=== PATIENT | male | born 1995 | race Two or more races ===

== ENCOUNTER 2024-02-03 04:55 | Emergency (ER) | payer BC, SELFPAY ==
[2024-02-03 04:55] VITALS: BMI 39.3
[2024-02-03 04:59] VITALS: BP 164/100; PULSE 86; RESP 18; TEMP 36.8; O2SAT 97
--- NOTE | 2024-02-03 05:06 | XR_ITS ---
Examination: CT abdomen and pelvis without contrast. Coronal 3-D reconstructions. Sagittal 2-D reconstructions. Date and time of exam:February 03, 2024 0520 hrs. Comparison August 12, 2016 Indications: Onset right flank pain beginning 3 days ago CTDI: vol (mGy): 13.51 DLP: (mGycm): 933 Technique: Axial images of the abdomen have been obtained, 3 mm slice thickness Intravenous contrast material has not been administered. Low dose protocols were performed. One or more of the following dose reduction techniques were used; automated exposure control, adjustment of the mA and/or KV according to patient size, use of iterative reconstruction technique. Findings: Diffuse fatty infiltration throughout the liver, no liver or splenic lesion Contracted gallbladder No pancreatic or adrenal mass 1 mm mid to lower right renal calculus Multiple left renal calculi, the largest lower pole left kidney 11 mm Mild right hydronephrosis secondary to 3 mm proximal right ureteral calculus image 151 Normal appendix Aorta normal size Contracted urinary bladder Impression: Mild right hydronephrosis secondary to 3 mm proximal right ureteral calculus
--- NOTE | 2024-02-03 05:06 | PD.EDRME ---
Rapid Medical Screening Exam RME Arrival date/time: 02/03/24 04:55 28-year-old male past medical history of kidney stones presents emergency department complaining abdominal pain and right flank pain that started 3 days. Chief Complaint: Abdominal Pain Vital signs: Vital Signs Temperature 98.3 F 02/03/24 04:59 Pulse Rate 86 02/03/24 04:59 Respiratory Rate 18 02/03/24 04:59 Blood Pressure 164/100 H 02/03/24 04:59 Pulse Oximetry (%) 97 02/03/24 04:59 Oxygen Delivery Method Room Air 02/03/24 04:59 Vital signs reviewed by provider: Yes
[2024-02-03] MEDS: KETOROLAC INJ 60 MG/2 ML VIAL 30 MG IM (05:14)
[2024-02-03 05:22] LABS: Collection Type, Urine Clean Catch; Squamous Epithelial Cell,Urine 0 /hpf (0-5)
[2024-02-03 05:25] LABS: Bilirubin,Urine Negative (Negative); Blood,Urine 2+ (Negative); Clarity,Urine Clear (Clear/Hazy); Color,Urine Lt-Yellow (Lt Yel-Yel); Culture Indicated,Urine Not Indicated; Glucose, Urine Negative (Negative); Ketones,Urine Negative (Negative); Leukocyte Esterase,Urine Negative (Negative); Nitrite,Urine Negative (Negative); PH,Urine 6.5 (5.0-7.0); Protein,Urine Negative (Neg - Trace); RBC,Urine 81 /hpf (0-3); Specific Gravity,Urine 1.014 (1.001-1.035); Urobilinogen,Urine Negative mg/dL (0.0-1.0); WBC,Urine 2 /hpf (0-5)
[2024-02-03 05:41] LABS: Amphetamine/Methamp Scrn,U Negative (Negative); Barbiturate Screen,Urine Negative (Negative); Benzodiazepines Screen,Urine Negative (Negative); Benzoylecgonine Screen, Ur Negative (Negative); Fentanyl Screen,Urine Negative (Negative); Opiate Screen,Urine Negative (Negative)
[2024-02-03 05:42] LABS: THC Screen,Urine Positive (Negative)
--- NOTE | 2024-02-03 05:51 | PRELIM_ITS ---
CT scan of the abdomen and pelvis without intravenous contrast (axial sections with sagittal and carolee nal reformats) February 03, 2024 at 0520 hours Clinical History: Right flank pain. Comparison: No thania or study is available for comparison. Findings:The lung bases are clear.The gallbladder, pancreas, sp lee and adrenals are unremarkable on this noncontrast study.Hepatomegaly associated with liver stea tosis is suspicious for steatohepatitis.Right mid ureteral stone measuring 0.3 cm, the stone is not v isible on the application integration architect image, mild right hydroureteronephrosis.Nonobstructing bilateral kidney stones.No evidence of bowel obstruction. No evidence of appendicitis. There is no mesenteric or retroperitonea l adenopathy.The urinary bladder is nondistended, limited evaluation. There is no free fluid or free air.The osseous structures are unremarkable.Impression:Right ureteral stone associated with hydrouret eronephrosis.Bilateral nonobstructing nephrolithiasis.Hepatomegaly associated with liver steatosis is suspicious for steatohepatitis. Report Electronically Signed By: Andrew Aparicio 02/03/2024 5:51:05 AM [EST]
[2024-02-03 06:49] LABS: Basophils % (Auto) 0 % (0-2.5); Eosinophils # (Auto) 0.1 Thou/mm3 (0.0-0.5); Eosinophils % (Auto) 1 % (0-10); Hematocrit 45.9 % (41.0-53.0); Hemoglobin 15.4 g/dL (13.5-16.0); Immature Granulocytes % (Auto) 0 % (0-0); Immature Granulocytes Auto 0.03 Thou/mm3 (0.00-0.00); Lymphocytes # (Auto) 1.3 Thou/mm3 (1.0-4.8); Lymphocytes % (Auto) 11 % (10-50); Mean Corpuscular HGB Conc 33.6 g/dl (31.0-37.0); Mean Corpuscular Hemoglobin 29.5 pg (25.0-35.0); Mean Corpuscular Volume 88 fL (80-100); Monocytes # (Auto) 0.5 Thou/mm3 (0.0-0.8); Monocytes % (Auto) 4 % (0-12); Neutrophils # (Auto) 10.2 Thou/mm3 (1.8-7.7); Neutrophils % (Auto) 84 % (37-80); Nucleated Red Blood Cell % 0 /100 WBC (0); Platelet Count 220 Thou/mm3 (140-440); RDW Standard Deviation 40.8 fL (35.1-43.9); Red Blood Count 5.22 Miln/mm3 (4.50-5.90); White Blood Count 12.1 Thou/mm3 (3.8-10.6)
[2024-02-03 07:14] LABS: Alanine Aminotransferase 63 U/L (10-49); Albumin, Serum 4.9 gm/dL (3.5-5.0); Albumin/Globulin Ratio 1.8 (1.2-2.2); Alkaline Phosphatase 78 U/L (46-116); Anion Gap 5 (7-16); Aspartate Amino Transferase 22 U/L (0-34); BUN/Creatinine Ratio 13 Ratio (12-20); Bilirubin,Total 0.5 mg/dL (0.3-1.2); Blood Urea Nitrogen 13 mg/dL (9-23); Calcium 10.1 mg/dL (8.3-10.6); Calcium (Corrected) 10.1 mg/dL (8.5-10.1); Carbon Dioxide 29.8 mMol/L (20.0-31.0); Chloride 104 mMol/L (98-107); Estimated Creatinine Clearance 152.9 mL/min (>60); Globulin 2.7 gm/dL (2.3-3.5); Glucose 126 mg/dL (74-106); Lipase 39 U/L (12-53); Osmolality,Calculated 279 (275-295); Potassium 4.1 mMol/L (3.4-5.1); Sodium 139 mMol/L (136-145); Total Protein 7.6 gm/dL (5.7-8.2); eGFR > 60 See Note
--- NOTE | 2024-02-03 07:31 | EDNOTE_ITS ---
ED Abdominal Pain RME/HPI General Chief Complaint: Abdominal Pain Stated complaint: R SIDE ABD PAIN Time seen by provider: 02/03/24 05:29 Arrival date/time: 02/03/24 04:55 28-year-old male with history of kidney stones presents to the emergency department complains of right flank pain nausea vomiting Limitations: no limitations RME / HPI RME / HPI narrative: 02/03/24 04:55 28-year-old male past medical history of kidney stones presents emergency department complaining abdominal pain and right flank pain that started 3 days. Related Data Home Medications ?Medication ?Instructions ?Recorded ?Confirmed ibuprofen 600 mg tablet 600 mg PO Q6HR PRN PAIN #0 tabs 07/06/13 Previous Rx's ?Medication ?Instructions ?Recorded Hydrocodone/Acetaminophen * (NORCO 1 - 2 tab PO Q4H PRN PAIN #14 tabs 08/12/16 5/325 *) hydrocodone 5 mg-acetaminophen 325 1 tab PO BID PRN pain #10 tabs 02/03/24 mg tablet ibuprofen 800 mg tablet 800 mg PO TID PRN pain #30 tabs 02/03/24 tamsulosin 0.4 mg capsule (Flomax) 0.4 mg PO QDAY 14 days #14 caps 02/03/24 Allergies Allergy/AdvReac Type Severity Reaction Status Date / Time NKA* Allergy Uncoded 08/11/16 20:56 Review of Systems Review of Systems Systems Reviewed: All systems reviewed, normal except as documented Constitutional Constitutional: Reports system reviewed and no additional complaints, except as documented, Denies fever(s) and Denies headache(s) Eyes Eyes: Reports system reviewed and no additional complaints, except as documented and Denies blurry vision ENT Ears, Nose, Mouth, and Throat: Reports system reviewed and no additional complaints, except as documented, Denies headache(s), Denies nasal congestion and Denies nasal discharge Cardiovascular Cardiovascular: Reports system reviewed and no additional complaints, except as documented, Denies chest pain and Denies dyspnea Respiratory Respiratory: Reports system reviewed and no additional complaints, except as documented, Denies chest congestion, Denies cough and Denies dyspnea Gastrointestinal Gastrointestinal: Reports system reviewed and no additional complaints, except as documented, Reports abdominal pain (right flank pain ), Reports nausea and Reports vomiting Integumentary/Breasts Skin/Breast: Reports system reviewed and no additional complaints, except as documented and Denies rash Neurologic Neurologic: Reports system reviewed and no additional complaints, except as documented, Reports as per HPI and Denies headache(s) Past Medical History Social History SMOKING STATUS: Never smoker ED Exam General Limitations: Present no limitations General appearance: Present alert and in no apparent distress Head Head exam: Present atraumatic Eye Eye exam: Present normal appearance, PERRL and EOMI ENT ENT exam: Present normal exam, normal oropharynx and mucous membranes moist Neck Neck exam: Present normal inspection, full ROM and trachea midline Chest Chest inspection: Present normal inspection and symmetric chest wall rise Respiratory Respiratory exam: Present normal lung sounds bilaterally Cardiovascular Cardiovascular exam: Present regular rate, normal rhythm and normal heart sounds Abdominal Exam Abdominal exam: Present soft, normal bowel sounds and other (right flank pain ); Absent distention, tenderness, guarding, rebound or rigidity Extremities Exam Extremities exam: Present normal inspection and full ROM Back Exam Back exam: Present normal inspection and full ROM Neurological Exam Neurological exam: Present alert, oriented X3 and CN II-XII intact Psychiatric Psychiatric exam: Present normal affect and normal mood Skin Skin exam: Present warm, dry, intact and normal color Course Quality Measures none Orders Category Date Time Status CT abdomen pelvis wo con Stat Exams 02/03/24 05:06 Completed CBC Stat Lab 02/03/24 06:42 Completed CMP [Comprehensive Metabolic Panel] Stat Lab 02/03/24 06:42 Completed Drug Screen,Urine Stat Lab 02/03/24 05:11 Completed Lipase Stat Lab 02/03/24 06:42 Completed Urinalysis, C/S if Indicated Stat Lab 02/03/24 05:11 Completed Ketorolac Inj [Toradol Inj] Med 02/03/24 05:06 Discontinued 30 mg IM X1 ONE Vital Signs Vital signs: Vital Signs Temperature 98.3 F 02/03/24 04:59 Pulse Rate 86 02/03/24 04:59 Respiratory Rate 18 02/03/24 04:59 Blood Pressure 164/100 H 02/03/24 04:59 Pulse Oximetry (%) 97 02/03/24 04:59 Oxygen Delivery Method Room Air 02/03/24 04:59 o2 sat 97% r/a wnl Abdominal Pain MDM MDM Narrative MDM Narrative:: 28-year-old male with history of kidney stones presents to the emergency department complains of right flank pain nausea vomiting On exam patient does not appear ill or toxic and in no acute distress Lab work and imaging obtained Symptoms consistent with kidney stone At time of my encounter the patient lab work and CT have resulted and patient confirmed to have kidney stone Patient medicated here and discharged home with meds patient instructed structures to return for worsening symptoms Patient discharged home in no distress to follow-up with primary care doctor in the next 24 to 48 hours and for any worsening symptoms to return to the ER immediately Patient data External records reviewed:: [facility] previous records Clinical information provided by:: patient Social determinants that could affect healthcare access:: none Patient has the following chronic illnesses:: none How is presenting disease/condition affected by chronic disease/condition?: no chronic disease Evaluation data The following diagnostics were reviewed and interpreted by me:: lab results and radiology exam(s) Lab and/or radiology exams considered but not ordered:: labs and rad obained Interpretation Summary: reviewed by me Medications / Prescriptions Medications or Prescriptions considered but not ordered:: given Medication administrations:: Medication Administration History Discontinued Medications Ketorolac Tromethamine (Ketorolac Inj 60 Mg/2 Ml Vial) 30 mg IM X1 ONE Stop: 02/03/24 05:07 Last Admin: 02/03/24 05:14 Dose: 30 mg Documented By: SHAHBAZ given Consultations Consultation(s) initiated? (list below): No Diagnosis Differential diagnosis abdominal pain: abdominal pain, acute appendicitis, calculus of kidney, gastroenteritis and pancreatitis Most likely diagnosis given after review of the tests above:: renal colic Admission Indicated Admission indicated?: not indicated Admission Request Was there a request for admission?: No Disposition Plan Disposition Plan: Discharge Discharge Attestation Discharge Attestation: The patient and all family members were given an opportunity to ask questions and understood the discharge instructions. Discharge instructions specifically effects, indications for sooner follow up or return to the emergency department, and the expected course of current diagnosis. Patient condition: Stable Discharge Plan Plan Patient Disposition: HOME (Self Care) Disposition Comment: Stable Prescriptions/Referrals Prescriptions/Med Rec: New ibuprofen 800 mg tablet 800 mg PO TID PRN (Reason: pain) Qty: 30 0RF hydrocodone-acetaminophen 5-325 mg tablet 1 tab PO BID MDD 10 PRN (Reason: pain) Qty: 10 0RF tamsulosin [Flomax] 0.4 mg capsule 0.4 mg PO QDAY 14 Days Qty: 14 0RF No Action ibuprofen 600 MG tablet 600 mg PO Q6HR PRN (Reason: PAIN) Qty: 0 Hydrocodone/Acetaminophen * (NORCO 5/325 *) 1 TAB tablet 1 - 2 tab PO Q4H PRN (Reason: PAIN) Qty: 14 0RF Rx Instructions: FOR PAIN Referrals: No Primary/Family,Physician [Primary Care Provider] - 02/05/24 Problem List Clinical Impression: Renal colic Patient/Caregiver Discharge Instructions Additional Instructions: Please follow up with your primary care doctor in the next 24-48hrs for any worsening symptoms return here immediately Print Language: Haitian Stand Alone Forms: Erma Award Info., Work/School Release, Patient Portal Info Letter PA/DIRECTOR NETWORK DEVELOPMENT Supervising Physician PA/DIRECTOR NETWORK DEVELOPMENT Supervising Physician: Dr. Funez
== END 2024-02-03 07:39 | disposition home or self-care (01) ==
PROVIDERS: Emergency Provider Emergency Medicine
DX: N23 Unspecified renal colic (principal)
CPT/HCPCS: 36415; 74176; 80053; 80307; 81001; 83690; 85025; 96372; 99283; J1885

== ENCOUNTER → 2024-04-06 | Outpatient (CLI) | payer BC, SELFPAY ==
[2024-04-06 11:44] LABS: Basophils % (Auto) 1 % (0-2.5); Eosinophils # (Auto) 0.1 Thou/mm3 (0.0-0.5); Eosinophils % (Auto) 1 % (0-10); Hematocrit 47.3 % (41.0-53.0); Hemoglobin 16.2 g/dL (13.5-16.0); Immature Granulocytes % (Auto) 1 % (0-0); Immature Granulocytes Auto 0.04 Thou/mm3 (0.00-0.00); Lymphocytes # (Auto) 2.5 Thou/mm3 (1.0-4.8); Lymphocytes % (Auto) 32 % (10-50); Mean Corpuscular HGB Conc 34.2 g/dl (31.0-37.0); Mean Corpuscular Hemoglobin 29.8 pg (25.0-35.0); Mean Corpuscular Volume 87 fL (80-100); Monocytes # (Auto) 0.4 Thou/mm3 (0.0-0.8); Monocytes % (Auto) 5 % (0-12); Neutrophils # (Auto) 4.7 Thou/mm3 (1.8-7.7); Neutrophils % (Auto) 60 % (37-80); Nucleated Red Blood Cell % 0 /100 WBC (0); Platelet Count 246 Thou/mm3 (140-440); RDW Standard Deviation 40.2 fL (35.1-43.9); Red Blood Count 5.44 Miln/mm3 (4.50-5.90); White Blood Count 7.8 Thou/mm3 (3.8-10.6)
[2024-04-06 11:53] LABS: Glucose Estimated Average 108 mg/dL (80-131); Hemoglobin A1C 5.4 % Hgb (4.8-6.0)
[2024-04-06 12:00] LABS: Folate 19.09 ng/mL (>5.38); Vitamin B12 540 pg/mL (211-911); Vitamin D 25 Hydroxy Total 11.8 ng/mL (7.3-40.2)
[2024-04-06 13:01] LABS: Alanine Aminotransferase 46 U/L (10-49); Albumin, Serum 4.6 gm/dL (3.5-5.0); Albumin/Globulin Ratio 1.6 (1.2-2.2); Alkaline Phosphatase 72 U/L (46-116); Anion Gap 7 (7-16); Aspartate Amino Transferase 22 U/L (0-34); BUN/Creatinine Ratio 16 Ratio (12-20); Bilirubin,Total 1.3 mg/dL (0.3-1.2); Blood Urea Nitrogen 13 mg/dL (9-23); Calcium 9.9 mg/dL (8.3-10.6); Calcium (Corrected) 9.9 mg/dL (8.5-10.1); Carbon Dioxide 29.4 mMol/L (20.0-31.0); Cardiac Risk Estimate 2.8 RATIO (4.0-6.7); Chloride 106 mMol/L (98-107); Cholesterol 179 mg/dL (132-200); Creatinine (Component) 0.8 mg/dL (0.6-1.3); Globulin 2.8 gm/dL (2.3-3.5); Glucose 87 mg/dL (74-106); HDL Cholesterol 64 mg/dL (40-60); LDL Cholesterol,Calculated 90 mg/dL (0-130); Osmolality,Calculated 282 (275-295); Potassium 3.9 mMol/L (3.4-5.1); Sodium 142 mMol/L (136-145); Thyroid Stimulating Hormone 1.32 uIU/mL (0.55-4.78); Total Protein 7.4 gm/dL (5.7-8.2); Triglycerides 123 mg/dL (30-150); eGFR > 60 See Note
== END | disposition home or self-care (01) ==
LOC: COPL 10:39
PROVIDERS: PCP Student in an Organized Health Care Education/Training Program; Referring Provider Student in an Organized Health Care Education/Training Program; Visit Provider Student in an Organized Health Care Education/Training Program
DX: R42 Dizziness and giddiness (principal); Z83.3 Family history of diabetes mellitus; Z82.49 Family history of ischemic heart disease and other diseases of the circulatory system
CPT/HCPCS: 36415; 80053; 80061; 82306; 82607; 82746; 83036; 84443; 85025